=== PATIENT | female | born 1985 | race Caucasian/White ===

== ENCOUNTER 2018-04-28 21:44 | Emergency (ER) | payer MEDICAID ==
[~2018-04-28] VITALS: Ht 167.6 cm; Wt 103.0 kg
[2018-04-28 21:50] VITALS: BP 139/89
[2018-04-28] MEDS ORDERED: proCHLORperazine 10 MG/2 ml inj IM ONE (22:15)
[2018-04-28] MEDS ORDERED: ketorolac tromethamine 15mg/ml inj. IM ONE (22:15)
[2018-04-28] MEDS ORDERED: diphenhydrAMINE 25mg capsule PO ONE (22:15)
[2018-04-28] MEDS ORDERED: RIZA10TA27 PO (23:21)
== END 2018-04-28 23:36 | disposition home or self-care (01) ==
LOC: ER 21:45
DX: R51 Headache (principal); Z88.8 Allergy status to other drugs, medicaments and biological substances; Z79.899 Other long term (current) drug therapy
CPT/HCPCS: 96372; 99284; J0780; J1885; Q0163

== ENCOUNTER 2018-07-14 10:27 | Emergency (ER) | payer MEDICAID ==
[~2018-07-14] VITALS: Ht 167.6 cm; Wt 104.0 kg
[~2018-07-14 10:27] MED LIST: RIZA10TA27 PO
[2018-07-14 10:28] VITALS: BP 120/97
[2018-07-14] MEDS ORDERED: ipratropium/albuterol 3ml nebule NEB ONE (10:55)
[2018-07-14] MEDS ORDERED: ALBU8HFA PO (11:04)
== END 2018-07-14 11:31 | disposition home or self-care (01) ==
LOC: ER 10:27
DX: J45.909 Unspecified asthma, uncomplicated (principal); F17.200 Nicotine dependence, unspecified, uncomplicated; Z88.1 Allergy status to other antibiotic agents
CPT/HCPCS: 94640; 94760; 99283

== ENCOUNTER 2018-09-06 17:44 | Emergency (ER) | payer MEDICAID ==
[~2018-09-06] VITALS: Ht 167.6 cm; Wt 105.0 kg
[2018-09-06] MEDS ORDERED: metoclopramide 5 mg/ml inj IV ONE (20:45)
[2018-09-06] MEDS ORDERED: diphenhydrAMINE 50 mg/ml inj IV ONE (20:45)
[2018-09-06] MEDS ORDERED: ketorolac trometh. 30mg/ml inj. IV ONE (20:45)
[2018-09-06] MEDS ORDERED: normal saline 1000ml 1,000 ML IV ONE (20:45)
[2018-09-06 21:17] LABS: URINE HCG NEGATIVE (NEG)
[2018-09-06 22:10] VITALS: BP 127/82
[2018-09-06] MEDS ORDERED: IBUP-1986 PO (22:16)
== END 2018-09-06 22:31 | disposition home or self-care (01) ==
LOC: ER 17:45
DX: G43.909 Migraine, unspecified, not intractable, without status migrainosus (principal); J45.909 Unspecified asthma, uncomplicated; F17.200 Nicotine dependence, unspecified, uncomplicated; Z90.49 Acquired absence of other specified parts of digestive tract; Z98.890 Other specified postprocedural states; Z88.8 Allergy status to other drugs, medicaments and biological substances; Z79.899 Other long term (current) drug therapy
CPT/HCPCS: 70450; 81025; 96374; 96375; 99285; J1200; J1885; J2765